=== PATIENT | male | born 1985 | race Caucasian/White ===

== ENCOUNTER 2019-05-16 08:21 | Day surgery (SDC) | payer OTHER ==
[2019-05-16] MEDS ORDERED: FENTAnyl 50 MCG/ML VIAL ×3 (09:22→12:26)
[2019-05-16] MEDS ORDERED: ROPIVACAINE 0.5 % 30 ML VIAL (09:22)
[2019-05-16] MEDS ORDERED: MIDAZOLAM 1 MG/ML 2 ML INJ (09:22)
[2019-05-16] MEDS ORDERED: PROPOFOL 20 ML ×2 (10:34→11:49)
[2019-05-16] MEDS ORDERED: HYDROmorphONE 2 MG/ML SYG (10:35)
[2019-05-16] MEDS ORDERED: ONDANSETRON 4 MG INJ (10:39)
[2019-05-16] MEDS ORDERED: METOCLOPRAMIDE 10 MG INJ (10:39)
[2019-05-16] MEDS ORDERED: CEFAZOLIN 1 GM INJ (10:43)
[2019-05-16] MEDS ORDERED: EPHEDrine 25 MG/5 ML SYG (10:51)
[2019-05-16] MEDS ORDERED: hydrALAzine 20 MG INJ (11:28)
[2019-05-16] MEDS: POLYMYXIN/BACITRACIN 1L IRRIG (11:31)
[2019-05-16] MEDS ORDERED: MEPERIDINE 100 MG INJ (11:51)
[2019-05-16] MEDS ORDERED: KETOROLAC 30 MG INJ (12:34)
[2019-05-16] MEDS ORDERED: FENTAnyl 50 MCG/ML VIAL IV ×3 (13:00)
[2019-05-16] MEDS ORDERED: EPHEDrine 25 MG/5 ML SYG IV (13:00)
[2019-05-16] MEDS ORDERED: HYDROmorphONE 1 MG/5 ML IV SYRINGE IV ×2 (13:00)
[2019-05-16] MEDS ORDERED: morphine 2 MG INJ IV ×4 (13:00→13:30)
[2019-05-16] MEDS ORDERED: MEPERIDINE 25 MG INJ IV (13:00)
[2019-05-16] MEDS ORDERED: OXYCODONE/ACETAMINOPHEN (5/325) TAB PO ×2 (13:00)
[2019-05-16] MEDS ORDERED: DIPHENHYDRAMINE 50 MG INJ IV (13:00)
[2019-05-16] MEDS: ONDANSETRON 4 MG INJ IV (13:11)
[2019-05-16] MEDS: HYDROmorphONE 1 MG/5 ML IV SYRINGE IV ×2 (13:12→13:20)
[2019-05-16] MEDS: KETOROLAC 30 MG INJ IV (13:52)
== END 2019-05-16 15:00 | disposition home or self-care (01) ==
LOC: SDS 08:21
DX: S83.511D Sprain of anterior cruciate ligament of right knee, subsequent encounter (principal); S83.241D Other tear of medial meniscus, current injury, right knee, subsequent encounter; X58.XXXD Exposure to other specified factors, subsequent encounter
CPT/HCPCS: 29881; 82306